=== PATIENT | male | born 1995 | race Caucasian/White ===

== ENCOUNTER 2024-12-03 20:52 | Emergency (ER) | payer MEDICARE, MEDICAID, SELFPAY ==
[2024-12-03 20:56] VITALS: BP 142/75; PULSE 89; RESP 18; TEMP 36.8; O2SAT 99
[2024-12-03 21:00] VITALS: RESP 18
--- NOTE | 2024-12-03 21:15 | RT.EKG_ITS ---
APPROVED REPORT Exam: Resting ECG Reason for Exam: weakness Patient Location: E HR:88 bpm ECG Measurements Heart Rate 88 AXIS VT 162 P 38 QRSd 89 QRS 39 QT 337 T 63 QTc 407 Conclusion Sinus rhythm...normal P axis, V-rate 60- 99 Sinus Rhythm. No prior. WD
--- NOTE | 2024-12-03 21:59 | W.ED.GENAD ---
Discharge Plan Discharge Details Chief Complaint: GenMedical Clinical Impression: Auditory hallucination, Weakness, Generalized muscle ache Primary Care Provider: Unknown,Unknown ED Provider: Felicia Jacome Home Meds and New Rx's Prescriptions: No Action doxycycline hyclate 100 mg capsule 100 mg PO BID aripiprazole [Abilify] 5 mg tablet 7.5 mg PO DAILY spironolactone [Aldactone] 100 mg tablet 100 mg PO DAILY benztropine 1 mg tablet 1 mg PO DAILY gabapentin 100 mg capsule 100 mg PO QHS progesterone micronized .ROUTE estradiol cypionate [Depo-Estradiol] IM HPI General Date/Time Provider Initiated Documentation: 12/03/24 21:02. HPI Narrative: 29-year-old transgender male to female with history of schizophrenia presents for evaluation of fevers, body aches, increase auditory hallucinations. Patient states that they have not felt well lately at all. They have had some intermittent fevers. They were seen by primary care last week and had blood work done. They were told that it was likely viral in nature. They called back but they had ongoing symptoms and were started on doxycycline for possible Lyme disease. They do not believe that they have had a positive Lyme test. They were told that they will need to have a repeat test in the next several days. They took the first dose of doxycycline today and felt weak throughout. They felt like their legs were tingling and that they were going to have difficulty walking. They had a fever of 100.2 yesterday and 99 today. No chest pain or shortness of breath. No fevers. No cough or cold. No sore throat or ear pain. Has been having some increased nausea and hunger but inability to eat. They do have intermittent diarrhea and constipation baseline. They occasionally have some pain with urination. Last year they had some difficulty treating a urinary tract infection and required 3 rounds of antibiotics. They did have the urine checked last week and they do not believe they have a urinary tract infection currently. They states that all of these health issues are causing increased stress and that they are normally able to handle the ongoing auditory hallucinations with her schizophrenia. The auditory hallucinations have been harder to manage with the current symptoms. We did speak to someone from an [facility] and would like a mental health evaluation today. Related Data Home Medications ?Medication ?Instructions ?Recorded ?Confirmed aripiprazole 5 mg tablet (Abilify) 7.5 mg PO DAILY 12/03/24 12/03/24 benztropine 1 mg tablet 1 mg PO DAILY 12/03/24 12/03/24 doxycycline hyclate 100 mg capsule 100 mg PO BID 12/03/24 12/03/24 estradiol cypionate IM 12/03/24 gabapentin 100 mg capsule 100 mg PO QHS 12/03/24 12/03/24 progesterone micronized .ROUTE 12/03/24 spironolactone 100 mg tablet 100 mg PO DAILY 12/03/24 12/03/24 (Aldactone) Allergies Allergy/AdvReac Type Severity Reaction Status Date / Time bupropion (From Wellbutrin) AdvReac Severe Agitation Verified 12/03/24 21:06 General Stated Complaint: GenMedical SEVERINO: 3 Review of Systems Narrative: Remainder of review of systems otherwise negative except for as noted in the HPI x 10. Exam Narrative Exam Narrative: General: non-toxic, no respiratory distress, comfortable HEENT: normocephalic, atraumatic, lids and lashes normal, PERRL, EOMI, anicteric sclera, no conjunctival injection, moist oral mucosa Card: regular rate and rhythm, S1S2, no murmurs, rubs, or gallops Lungs: good air entry, clear to auscultation bilaterally. no wheezes, rales, rhonchi, or retractions Abd: soft, non-tender, non-distended, normal bowel sounds, no rebound or guarding, no peritoneal signs Musculoskeletal: full range of motion of arms and legs, no tenderness to palpation. no clubbing, cyanosis, or edema Neurologic: GSC 15, CN 2-12 intact bilaterally, speech normal, strength normal, sensation intact distally in all four extremities, gait normal, 2+ biceps tendon reflexes, normal finger to nose, normal rapid alternating movements, no pronator drift Psych: alert and oriented, denies suicidal ideation, denies homicidal ideation, + auditory hallucinations Skin: no petechiae, no lesions, warm and dry Course Vital Signs Vital signs: Vital Signs Temperature 36.8 C 12/03/24 20:56 Pulse 89 12/03/24 20:56 Respiratory Rate 18 12/03/24 20:56 Blood Pressure 142/75 H 12/03/24 20:56 Pulse Oximetry 99 12/03/24 20:56 Temperature 36.8 C 12/03/24 20:56 Pulse 89 12/03/24 20:56 Respiratory Rate 18 12/03/24 21:00 Blood Pressure 142/75 H 12/03/24 20:56 Pulse Oximetry 99 12/03/24 20:56 Oxygen Delivery Method Room Air 12/03/24 20:56 Oxygen Flow Rate 0 12/03/24 20:56 Lab/Test Results Lab/Test Results: 12/03/24 21:50 Blood Blood Culture - Pending 12/03/24 21:27 Blood Blood Culture - Pending Medical Decision Making 29-year-old transgender male to female with history of schizophrenia presents for evaluation of intermittent fever, muscle aches, increased auditory hallucinations. At time of evaluation patient is neurologically intact. NIH stroke score equals 0. They report low-grade fevers over the last couple of days. The fever did not grow greater than 100.4. They have had 1 dose of doxycycline. It was apparently prescribed for empiric treatment of Lyme disease. EKG unremarkable. Laboratory studies show mild elevation of white count. Lactic acid is normal. Blood cultures are pending. Rapid influenza, COVID, RSV are negative. No electrolyte abnormality. UA negative. Tick panel pending. Patient is reassured with these findings. They are medically cleared for mental health evaluation. Signed out to ongoing provider with mental health evaluation pending. PFSH All Active Problems (Updated 12/03/24 @ 23:13 by Felicia Jacome MD) Generalized muscle ache (Acute) Weakness (Acute) Auditory hallucination (Acute) Social History Smoking/Tobacco Use Status: Current every day Smoking risk assessment performed?: Yes Alcohol Intake: never Substance use type: marijuana
[2024-12-03 22:00] LABS: Abs Immature Grans 0.04 10^3/uL (0.0-0.06); HCT 41.6 % (40.0-50.0); HGB 14.4 g/dL (13.5-17.5); Immature Grans % 0.3 %; MCH 31.0 pg (27.0-33.0); MCHC 34.6 % (32.0-36.0); MCV 90 fL (80-95); MPV 10.5 fL (8.0-11.0); Platelet Count 275 10^3/uL (130-400); RBC 4.64 10^6/uL (4.36-5.78); RDW 12.2 % (11.8-14.1); RDW-SD 39.8 fL; WBC 12.06 10^3/uL (4.4-10.8)
[2024-12-03 22:15] LABS: Glucose Negative (Negative)
[2024-12-03 22:30] LABS: COVID-19 PCR Negative (Negative); RSV PCR Negative (Negative)
[2024-12-03 22:36] LABS: ALT 75 U/L (16-63); AST 30 U/L (15-37); Albumin 4.0 g/dL (3.4-5.0); Alkaline Phosphatase 101 U/L (46-116); Anion Gap 12.2 mmol/L (3-11); BUN 12 mg/dL (7-18); Bilirubin, Total 0.6 mg/dL (0.2-1.0); CO2 23.8 mmol/L (21.0-32.0); Calcium 9.0 mg/dL (8.5-10.1); Chloride 105 mmol/L (98-107); Estimated GFR 134.85 (mL/min/1.73m2); Glucose 97 mg/dL (74-106); Lipase 60 U/L (<78); Magnesium 2.0 mg/dL (1.8-2.4); Potassium 3.8 mmol/L (3.5-5.1); Sodium 141 mmol/L (136-145); Total Protein 7.4 g/dL (6.4-8.2); Troponin I 9 ng/L (<or=76)
--- NOTE | 2024-12-04 00:15 | W.EDPROG ---
Date of service: 12/04/24 Time of Service: 00:17 Medical Decision Making Patient was seen by Dr. Luther and transitioned to ak. Please refer to HPI, physical exam, assessment and plan. Patient came in with atypical systemic symptoms. Dr. Luther performed a very thorough workup, all of which was notably benign. At the time of signout the patient had been medically cleared, however we are awaiting evaluation by the mental health advocates for outpatient resources. The mental health advocates have come and evaluated the patient, and will be helping her get home. They we will start [facility] referrals, as well as place a referral in for the care bed. The patient is in agreement with this. Patient feels comfortable with the plan. Patient will be discharged home. We have extensively reviewed the treatment plan and discharge instructions with the patient. We have addressed all patient concerns at this time. The patient was made aware of what symptoms to monitor for that would warrant a return to the emergency department. Discussed the plan with the patient, they demonstrate verbal understanding and agreement with our assessment and plan at this time. The documentation in this chart was dictated using [employer] dictation software. Please excuse any dictation errors. Discharge Plan Disposition Patient Disposition: Home Condition: Good Discharge Details Clinical Impression: Auditory hallucination, Weakness, Generalized muscle ache Primary Care Provider: Unknown,Unknown ED Provider: Felicia Luther [place] Meds and New Rx's Prescriptions: No Action doxycycline hyclate 100 mg capsule 100 mg PO BID aripiprazole [Abilify] 5 mg tablet 7.5 mg PO DAILY spironolactone [Aldactone] 100 mg tablet 100 mg PO DAILY benztropine 1 mg tablet 1 mg PO DAILY gabapentin 100 mg capsule 100 mg PO QHS progesterone micronized .ROUTE estradiol cypionate [Depo-Estradiol] IM Discharge Instructions Instructions: Fatigue Additional Instructions: At this time you have had a very thorough medical workup that was provided by Dr. Luther. There is no evidence to suggest significant severe systemic infection, significant electrolyte abnormality, renal dysfunction, urinary tract infection, heart attack, pancreatitis, COVID, flu, RSV, or other significant abnormality. You will be contacted if the results for your tick and Lyme testing returned positive. Please follow-up closely with your mental health advocates and your [facility] connections. They will connect with you when your care bed opportunities become available. If you notice any worsening of your symptoms, or any new symptoms such as vomiting, diarrhea, fever, chills, shortness of breath, chest pain, numbness, weakness, or fainting , please return immediately to the emergency department for reevaluation. Please follow up with your primary care provider as soon as possible for reassessment and reevaluation. As always, it was a pleasure participating in your medical care today.
[2024-12-04 00:27] VITALS: BP 140/88; PULSE 80; RESP 18; O2SAT 98
--- NOTE | 2024-12-04 01:27 | PDOC.MHCN ---
Date of service: 12/03/24 Time of Service: 23:26 PHQ-9 Over the last 2 weeks, how often have you been bothered by any of the following problems? 1. Little interest or pleasure in doing things: several days 2. Feeling down, depressed, or hopeless: nearly every day 3. Trouble falling or staying asleep, or sleeping too much: nearly every day 4. Feeling tired or having little energy: several days 5. Poor appetite or overeating: more than half the days 6. Feeling bad about yourself - or that you are a failure or have let yourself and your family down: more than half the days 7. Trouble concentrating on things, such as reading the newspaper or watching television: nearly every day 8. Moving or speaking so slowly that other people could have noticed? - Or the opposite - being so fidgety or restless that you have been moving around a lot more than usual: not at all 9. Thoughts that you would be better off or of hurting yourself in some way: nearly every day Total score: 18 If you checked off any problems, how difficult have these problems made it for you to do your work, take care of things at home, or get along with other people?: extremely difficult Source: Developed by Drs. Tarun Swain, Jess Marcial, Narendra Marroquin and colleagues, with an educational stevo from [employer]. Suicide Severity Rate CSSRS Have you wished you were or wished you could go to sleep and not wake up?: Yes Have you actually had any thoughts of killing yourself?: No CSSRS3 Have you ever done anything, started to do anything or prepared to do anything to end your life?: Yes CSSRS4 Was this within the past three months?: No Screening Score Total Score: 4 Screening: Positive Mental Health Emergency Note Release [facility] release signed:: Yes Reason for Visit In the last 2 weeks has the pt presented for ES prior to today?: No Non Suicidal Self Injury Current: Yes, Banging Head, Earlier in the week History: yes, Banging Head Safety Risk/Harm to Self or Others Current Ideation to Harm Self or Others: No Asssessment/Mental Status Appearance: Well groomed Attitude: Cooperative and Friendly Behavior: Unremarkable Speech: Normal Affect: Normal and Cogruent with mood Mood: Sad, Stressed and Anxious Thought process: Unremarkable and Goal directed Hallucinations: yes, Auditory Delusions: No Attention: Unremarkable Perception: Not impaired Orientation: Fully orientated Memory: Intact Insight: Good Judgement: Good Neurovegetative Symptoms Sleep: Decrease (Cant fall asleep and waking up frequently) Appetitie: Increase (4 meals a day) Interests: Decrease Energy: Decrease Libido: Not applicable Substance Use: Do you use nicotine?: Yes Have you used substances in the last 7 days?: yes, Cigarettes about 7 a day and occasional vaping. Zeinab stopped THC products about a month ago. Moncho Arriola is a 29-year-old transgender female who presented to [facility] for medical concerns then screened by this policy writer typist. Zeinab appeared open and honest with this policy writer typist?s questions and appeared to answer to the best of her ability. Zeinab reported a decrease in her sleep, interest, and energy. She reported difficulty falling and staying asleep. She also reported an increase in her appetite, eating about 4 meals a day. Zeinab informed this policy writer typist that she recently moved back in with her parents after the sixth attempt at trying to live by herself. Zeinab informed this policy writer typist that she is unable to care for herself to the capacity she would need to live alone. Zeinab is concerned that when her parents she will also because she can?t take care of herself. Zeinab wants to be supported and not rely on her parents. ?Melissa reported auditory hallucinations to this policy writer typist. Melissa showed great insight when speaking to this policy writer typist about her hallucinations. Zeinab discussed that she can take the voices at face value and not read into what they say. Zeinab also described about a month ago, that she had auditory hallucinations telling her to go to the kitchen and get a knife to hurt herself. Zeinab informed this policy writer typist that she did go to the kitchen, but stopped herself before getting a knife and used different coping skills to become regulated again. Zeinab reported she tries to treat herself with kindness and treat the voices with kindness. Melissa addressed she has a long history of past trauma, and the voices tend to feed off of her past trauma. Zeinab reported that one of the best ways to cope with her voices, is to start a conversation with them and talk through the trauma. Zeinab reported no SI or HI, but did report occasional non suicidal self-injury in the form of hitting her head. Zeinab reported the use of cigarettes and vaping daily and has a history of abusing prescription medications. Zeinab reported she stopped abusing pills around 2021 and stopped using THC related products around a month ago to try and fix her distorted sleep and increased auditory hallucinations. Melissa?s appearance was clean and well-groomed to this policy writer typist. Zeinab showed a futuristic though process throughout the assessment and is hopeful that she can be supported. When asked what is the one thing worth living for in her safety plan, Zeinab reported ?living the life I deserve?. Plan/Disposition Recommended Disposition: [facility] Services [facility] Services: PHYSICIAN RELATIONS MANAGER and Other (Care Bed Referral ) and PHYSICIAN RELATIONS MANAGER. Plan: Zeinab has an appointment at 1:30pm with the PHYSICIAN RELATIONS MANAGER department of [facility]. Zeinab was also open to a Care Bed referral, but understood that due to a wait list she might not get accepted immediately. Zeinab was safety planned home. Reports/communication Outcome discussed with: ED/Personnel (Dr. Duenas)
[2024-12-05 11:06] LABS: Lyme Ab w Rflx to Lyme Confirm Negative (Negative)
[2024-12-07 13:42] LABS: B. miyamotoi PCR Negative (Negative); Babesia divergens/MO-1 Negative (Negative); Ehrlichia muris eauclairensis Negative (Negative)
== END 2024-12-04 00:29 | disposition home or self-care (01) ==
LOC: ER 12-04 01:08
PROVIDERS: Emergency Provider Emergency Medicine Emergency Medical Services
DX: R44.0 Auditory hallucinations (principal); R53.1 Weakness; M79.10 Myalgia, unspecified site; F17.200 Nicotine dependence, unspecified, uncomplicated
CPT/HCPCS: 00123; 80053; 83690; 87040; 87637; 87798; 93005; 96127; 99284; 81003; 83605; 83735; 84484; 85025; 86618; 93010